=== PATIENT | female | born 1990 | race Caucasian/White ===

== ENCOUNTER 2018-05-28 08:46 | Emergency (ER) | payer MEDICAID, OTHER ==
[~2018-05-28] VITALS: Ht 165.1 cm; Wt 78.0 kg
[~2018-05-28 08:46] MED LIST: LORA0.5T PO
[2018-05-28 09:42] LABS: URINE HCG NEGATIVE (NEG)
[2018-05-28 09:47] LABS: CLARITY,URINE CLEAR (Clear); COLOR,URINE STRAW (Yellow); GLUCOSE, URINE NEGATIVE (Neg); KETONES,URINE NEGATIVE (Neg); LEUKOCYTE ESTERASE ,URINE NEGATIVE (Neg); NITRITES, URINE NEGATIVE (Neg); OCCULT BLOOD,URINE LARGE (Neg); PROTEIN,URINE NEGATIVE (Neg); UROBILINOGEN,URINE 0.2 E.U/dL (0.2-1.0)
[2018-05-28 09:54] LABS: UA COLLECTION TYPE CLN CATCH MIDSTREAM
[2018-05-28 09:55] LABS: SQUAMOUS EPITHELIAL CELL,UR FEW /LPF (FEW); WBC,URINE 0-4 /HPF (0-4)
[2018-05-28 09:56] LABS: BACTERIA,URINE NONE SEEN /HPF (Neg); RBC,URINE 0-2 /HPF (0-2)
[2018-05-28] MEDS ORDERED: ketorolac trometh. 30mg/ml inj. IM ONE (11:00)
[2018-05-28] MEDS ORDERED: CYCL-1 PO (11:10)
[2018-05-28 11:25] VITALS: BP 108/77
== END 2018-05-28 11:27 | disposition home or self-care (01) ==
LOC: ER 08:47
DX: S39.012A Strain of muscle, fascia and tendon of lower back, initial encounter (principal); F17.200 Nicotine dependence, unspecified, uncomplicated; F12.90 Cannabis use, unspecified, uncomplicated; Z79.899 Other long term (current) drug therapy; Z88.8 Allergy status to other drugs, medicaments and biological substances; X58.XXXA Exposure to other specified factors, initial encounter; Y93.89 Activity, other specified; Y92.89 Other specified places as the place of occurrence of the external cause; Y99.8 Other external cause status
CPT/HCPCS: 81001; 81025; 96372; 99284; J1885

== ENCOUNTER 2022-04-26 02:10 | Emergency (ER) | payer MEDICAID, OTHER ==
[~2022-04-26] VITALS: Ht 165.1 cm; Wt 81.8 kg
[~2022-04-26 02:10] MED LIST changes: +CYCL-1 PO
[2022-04-26] MEDS ORDERED: acetaminophen 325mg tablet PO ONE (03:15)
[2022-04-26 03:31] VITALS: BP 130/88
== END 2022-04-26 03:33 | disposition home or self-care (01) ==
LOC: ER 02:11
DX: M25.522 Pain in left elbow (principal); F12.10 Cannabis abuse, uncomplicated; Z87.448 Personal history of other diseases of urinary system; Z88.8 Allergy status to other drugs, medicaments and biological substances; Z88.5 Allergy status to narcotic agent; W19.XXXA Unspecified fall, initial encounter; Y93.89 Activity, other specified; Y92.89 Other specified places as the place of occurrence of the external cause; Y99.8 Other external cause status; Z79.899 Other long term (current) drug therapy
CPT/HCPCS: 73080; 99284

== ENCOUNTER 2025-07-27 11:11 | Emergency (ER) | payer MEDICAID ==
[~2025-07-27] VITALS: Ht 165.1 cm; Wt 76.4 kg
[~2025-07-27 11:11] MED LIST changes: +LORA-269 PO; +ONDA-243 PO
[2025-07-27 11:17] VITALS: BP 132/99; PULSE 97; RESP 16; TEMP 98; O2SAT 100
--- NOTE | 2025-07-27 12:13 | RADIOLOGY REPORT ---
CLINICAL INDICATION: FOOT PAIN RIGHT TECHNIQUE: 3 radiographic views of the right foot were obtained. Comparison: ELBOW, COMPLETE (3VW MIN) on DOS: 04/26/22 FINDINGS/IMPRESSION: There is no evidence of acute fracture or dislocation. The visualized joint space is well maintained. The alignment is anatomical. There is no radiopaque foreign body.
--- NOTE | 2025-07-27 12:33 | Physician Documentation ---
History of Present Illness ~ Chief Complaint: Foot pain Stated Complaint: R FOOT PAIN Time Seen by MD: 11:58 Primary Medical Doctor: none HPI 34-year-old female presents to the ED with a one day of right foot pain she did not injure foot is not in her feet for occupation does not have any history of gout or previous foot problems. It hurts to stand and with flexion and extensio n. He has did have a history of plantar fasciitis Denies any numbness or tingling Day of Onset: Jul 27, 2025 Tetanus witin 5 years: No Medication Reconciliation Allergies: Coded Allergies: hydrocodone bit (Verified Allergy, Unknown, 12/29/23) Scheduled Cyclobenzaprine* (Cyclobenzaprine*), 1 TAB PO TID Lorazepam* (Ativan*), 0.5 MG PO Q6H, (Reported) Scheduled PRN Lorazepam (Ativan), 1 TAB PO Q12H PRN PRN for anxiety ONDANSETRON ODT 4mg tablet (Ondansetron Odt), 1 TAB PO Q6H PRN for nausea/vomiting Past Medical History Past Medical History: UTI Past Surgical History: no surgical history Patient History: FH: kidney failure (Father) FH: liver cancer (Father) Alcohol Use: Occasionally Drug Use: marijuana Lives In: Home Review of Systems All Other Systems at this time: Reviewed and Negative ROS As stated above in the HPI, otherwise all systems are reviewed and negative. Physical Exam Vital Signs: Temperature: 98.0, Source: Temporal, Heart Rate: 97, Respiratory Rate: 16, BP: 132/99, Pulse Oximetry: 100, Weight: 76.360 Oxygen Flow Rate: 0 Physical Exam General: Alert, no apparent distress. Extremities: With range of motion of the 3rd and 4th metatarsals. No evidence of redness or swelling Neurologic: Oriented x4. Psychiatric: Normal mood and affect. Skin: Normal color, warm and dry. No edema, no ecchymosis. Progress Results/Orders Results/Orders Vital Signs 07/27/25 11:17 Temp 98.0 Pulse 97 Resp 16 B/P (MAP) 132/99 Pulse Ox 100 O2 Flow Rate 0 Medical Decision Making Findings Currently suspecting a traumatic metatarsalgia I told the patient to rest take ibuprofen and utilize ice bags of she has symptom relief. I do not seen you reason to pursue any further imaging Toe Diff Dx:Considerations: Include: Abrasion, Cellulitis, Contusion, Dislocation, Felon, Fracture, Hematoma, Laceration, Neurovascular injury, Open fracture, Paronychia, Subungual hematoma, Other Departure Disposition: HOME / SELF CARE / HOMELESS Impression: Primary Impression: Metatarsalgia Condition: Stable Discharge Instructions: Sprains Referrals: NO PRIMARY CARE PROVIDER (PCP) Prescriptions Diclofenac Sodium (Voltaren Arthritis Pain) 1 % Gel..gram. 1 APPLIC TOP BID for pain for 10 Days, #30 GM Prov: HERB MCKINNEY NP 07/27/25 Signature Scribe Signature: f Attestation: Scribed for Herb Mckinney Teletypewriter Operator by Herb Castañeda NP . 07/27/25 12:32 HERB MCKINNEY NP Jul 27, 2025 12:33
[2025-07-27] MEDS ORDERED: DICL20GE TOP (12:35)
== END 2025-07-27 13:07 | disposition home or self-care (01) ==
LOC: ER 11:12
DX: M77.41 Metatarsalgia, right foot (principal); F12.90 Cannabis use, unspecified, uncomplicated
CPT/HCPCS: 73630; 99283